=== PATIENT | female | born 1985 | race Caucasian/White ===

== ENCOUNTER 2016-11-02 13:08 | Emergency (ER) | payer MEDICAID ==
[2016-11-02 13:22] VITALS: BP 125/75
--- NOTE | 2016-11-02 14:39 | ED Physician Documentation ---
PD HPI URI - Stated complaint Stated Complaint: COUGH/CONGESTION - Chief complaint Chief Complaint: Heent - History obtained from History obtained from: Patient - History of Present Illness Timing - onset: Other (3 weeks of productive cough, runny nose and sinus congestion but the thing that bothers her the most is bilateral ear pain and diminished hearing. She has had subjective fevers. No possibility of .) Review of Systems Constitutional: reports: Fever, Fatigue Ears: reports: Ear pain. denies: Drainage/discharge Nose: reports: Rhinorrhea / runny nose Throat: denies: Sore throat Respiratory: reports: Cough. 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 : None HEENT: None Psych: Depression, Anxiety, Post traumatic stress disorder Musculoskeletal: None Derm: None - Past Surgical History Past Surgical History: No - Present Medications Home Medications: Ambulatory Orders Medication Instructions Recorded Confirmed Albuterol Sulfate [Proventil Hfa 1 - 2 puffs IH Q4H PRN #1 11/02/16 Inhaler] hfa.aer.ad Amoxicillin 500 mg PO TID #30 capsule 11/02/16 Guaifenesin/Pseudoephedrne HCl 1 each PO BID PRN #20 tab.er.12h 11/02/16 [Mucinex D ER 600-60 mg Tablet] guaiFENesin/CODEINE [Robitussin AC] 5 - 10 ml PO Q6H PRN #120 ml 11/02/16 - Allergies Allergies/Adverse Reactions: Allergies Allergy/AdvReac Type Severity Reaction Status Date / Time oxycodone HCl * Allergy Mild Nausea Verified 11/02/16 13:22 [From Percocet] - Social History Does the pt smoke?: Yes Smoking Status: Current some day smoker Does the pt drink ETOH?: Yes Does the pt have substance abuse?: No - Immunizations Immunizations are current?: Yes - POLST Patient has POLST: No PD ED PE NORMAL - Vitals Vital signs reviewed: Yes - General General: Alert and oriented X 3, No acute distress - HEENT HEENT: PERRL, EOMI, Ears normal (BOM), Moist mucous membranes, Pharynx benign - Neck Neck: Supple, no meningeal sign, No bony TTP - Cardiac Cardiac: RRR, No murmur - Respiratory Respiratory: No respiratory distress, Other (Mild exp wheeze) - Abdomen Abdomen: Non tender - Derm Derm: No rash - Neuro Neuro: Alert and oriented X 3, Normal speech - Psych Psych: Normal mood, Normal affect Results - Vitals Vitals: Vital Signs - 24 hr 11/02/16 13:21 Temperature 35.9 C L Heart Rate 82 Respiratory 14 Rate Blood Pressure 125/75 O2 Saturation 100 Oxygen O2 Source Room air Departure - Departure Disposition: Home, Self Care Clinical Impression: Viral URI with cough BOM (bilateral otitis media) Qualifiers: Otitis media type: suppurative Chronicity: acute Recurrence: recurrent Spontaneous tympanic membrane rupture: without spontaneous rupture Qualified Code(s): H66.006 - Acute suppurative otitis media without spontaneous rupture of ear drum, recurrent, bilateral Condition: Good Record reviewed to determine appropriate education?: Yes Instructions: ED Otitis Media Acute Adult Prescriptions: Amoxicillin 500 mg PO TID #30 capsule Guaifenesin/Pseudoephedrne HCl [Mucinex D ER 600-60 mg Tablet] 1 each PO BID PRN #20 tab.er.12h PRN Reason: congestion Albuterol Sulfate [Proventil Hfa Inhaler] 1 - 2 puffs IH Q4H PRN #1 hfa.aer.ad PRN Reason: Cough guaiFENesin/CODEINE [Robitussin AC] 5 - 10 ml PO Q6H PRN #120 ml PRN Reason: Cough Comments: Follow up with your Dr. in one week, return if worse.
== END 2016-11-02 14:41 | disposition home or self-care (01) ==
LOC: ED 13:08
DX: J06.9 Acute upper respiratory infection, unspecified (principal); B97.89 Other viral agents as the cause of diseases classified elsewhere; H66.006 Acute suppurative otitis media without spontaneous rupture of ear drum, recurrent, bilateral; F17.200 Nicotine dependence, unspecified, uncomplicated
CPT/HCPCS: 99283

== ENCOUNTER 2017-03-19 07:48 | Emergency (ER) | payer OTHER, MEDICAID ==
[2017-03-19] MEDS ORDERED: ACETAMINOPHEN 500 MG TABLET PO STA (08:18)
--- NOTE | 2017-03-19 08:21 | ED Physician Documentation ---
PD HPI BACK PAIN - Stated complaint Stated Complaint: BACK PX - Chief complaint Chief Complaint: Back Pain - History obtained from History obtained from: Patient - History of Present Illness Timing - onset: How many hours ago (4) Timing - details: Still present Location: Lower, Right Quality: Pain Associated symptoms: No: Fever, Weakness, Numbness, Incontinent of urine Worsened by: Movement Contributing factors: Lifting Similar symptoms before: Has not had sx before - Additional information Additional information: The patient is a 32-year-old female who presents with right lower back pain that started suddenly this morning when 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 The pain has persisted since onset. She denies associated fever, numbness or weakness, or urinary incontinence. She has no history of similar symptoms in the past. She is currently at about 14 weeks gestation. Review of Systems Constitutional: denies: Fever Nose: denies: Congestion Throat: denies: Sore throat Cardiac: denies: Chest pain / pressure Respiratory: denies: Dyspnea, Cough GI: denies: Abdominal Pain, Nausea, Vomiting : denies: Dysuria, Incontinent Skin: denies: Rash Musculoskeletal: reports: Back pain. 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 HEENT: None Psych: Depression, Anxiety, Post traumatic stress disorder Musculoskeletal: None Derm: None - Past Surgical History Past Surgical History: No - Present Medications Home Medications: Ambulatory Orders Medication Instructions Recorded Confirmed Cyclobenzaprine [Flexeril] 10 mg PO TID PRN #20 tablet 03/19/17 - Allergies Allergies/Adverse Reactions: Allergies Allergy/AdvReac Type Severity Reaction Status Date / Time oxycodone HCl * Allergy Mild Nausea Verified 03/19/17 07:59 [From Percocet] - Social History Does the pt smoke?: Yes Smoking Status: Current every day smoker Does the pt drink ETOH?: No Does the pt have substance abuse?: Yes Substance Use and Type: Meth - Immunizations Immunizations are current?: Yes - POLST Patient has POLST: No PD ED PE NORMAL - Vitals Vital signs reviewed: Yes (borderline hypertension) - General General: Alert and oriented X 3, Well developed/nourished - HEENT HEENT: Atraumatic, Pharynx benign - Neck Neck: Supple, no meningeal sign, No adenopathy - Cardiac Cardiac: RRR, No murmur - Respiratory Respiratory: No respiratory distress, Clear bilaterally - Abdomen Abdomen: Soft, Non tender, Other ( heart rate 145.) - Back Back: Other (Mild right flank tenderness to percussion; tender to palpation in the right paralumbar musculature.) - Derm Derm: No rash - Extremities Extremities: No edema, No calf tenderness / cord, Other (Straight leg raise test is negative bilaterally.) - Neuro Neuro: Alert and oriented X 3, No motor deficit, No sensory deficit, Other (No saddle anesthesia.) Results - Vitals Vitals: Oxygen O2 Source Room air - Labs Labs: Laboratory Tests 03/19/17 07:58 Urine Color YELLOW Urine Clarity CLEAR Urine pH 6.0 Ur Specific [place] 1.010 Urine Protein NEGATIVE Urine Glucose (UA) NEGATIVE Urine Ketones NEGATIVE Urine Occult Blood NEGATIVE Urine Nitrite NEGATIVE Urine Bilirubin NEGATIVE Urine Urobilinogen 0.2 (NORMAL) Ur Leukocyte Esterase NEGATIVE Ur Microscopic Review NOT INDICATED Urine Culture Comments NOT INDICATED PD MEDICAL DECISION MAKING - ED course Complexity details: reviewed results, re-evaluated patient, considered differential, d/w patient ED course: The patient's presentation is most consistent with acute lumbar strain. Her presentation does not suggest urinary tract infection, with negative urinalysis. There is no evidence to suggest epidural abscess, spinal stenosis, for cauda equina syndrome. Treatment in the emergency department included administration of acetaminophen 1000 mg orally. I discussed with her the expected course of symptoms, symptomatic relief and outpatient follow-up, as well as potentially worrisome signs or symptoms that should prompt reevaluation in the emergency department. A labor and industries form was completed. Departure - Departure Disposition: 01 Home, Self Care Clinical Impression: Back pain Qualifiers: Back pain location: low back pain Chronicity: acute Back pain laterality: right Sciatica presence: without sciatica Qualified Code(s): M54.5 - Low back pain Condition: Stable Instructions: ED Low Back Pain Injury Follow-Up: Laura Jaramillo ARNP [Primary Care Provider] - Prescriptions: Cyclobenzaprine [Flexeril] 10 mg PO TID PRN #20 tablet PRN Reason: Spasms Comments: Apply icepack to your lower back intermittently for the next 3 or 4 days. You can use acetaminophen as needed for back pain. Use Flexeril as prescribed if needed for muscle spasms. Let pain be your guide to activity level. Followup with your primary physician within 2 weeks. Call to schedule an appointment. Return to the emergency department if you develop increasing pain, numbness or weakness, urinary incontinence, or otherwise worsening symptoms. Discharge Date/Time: 03/19/17 09:49
[2017-03-19] MEDS ORDERED: ACETAMINOPHEN 500 MG TABLET PO ONE (08:29)
[2017-03-19 08:59] LABS: BILIRUBIN,URINE NEGATIVE (NEGATIVE)
[2017-03-19 09:01] LABS: UA CHARGE (STRIP ONLY) YES; UR CULTURE IF IND NOT INDICATED
[2017-03-19 09:49] VITALS: BP 136/74
[2017-03-19] MEDS ORDERED: ACETAMINOPHEN 1,000 MG/100 ML 100 ML IV ONE (11:28)
== END 2017-03-19 09:49 | disposition home or self-care (01) ==
LOC: ED 07:48
DX: M54.5 Low back pain (principal); X50.0XXA Overexertion from strenuous movement or load, initial encounter; Y93.89 Activity, other specified; Y99.0 Civilian activity done for income or pay; F17.200 Nicotine dependence, unspecified, uncomplicated
CPT/HCPCS: 1040M; 81003; 99283; A9270; J0131; 81001; 87086

== ENCOUNTER 2017-05-14 12:06 | Outpatient (CLI) | payer MEDICAID ==
--- NOTE | 2017-05-17 17:44 | Ultrasound Report ---
EXAM: OB ANATOMIC SURVEY 05/14/2017 CLINICAL INDICATION: . TECHNIQUE: Real-time scanning was performed with customer field representative static images obtained. LAST MENSTRUAL PERIOD: 11/23/2016 Clinical Age: 24 weeks 4 days US Age: 25 weeks 0 days EFW Hadlock: 739 gm EFW% Hadlock: 52% Heart Rate: 146 bpm EDC: 08/30/2017 US EDC: 08/27/2017 BPD Hadlock: 25 weeks 2 days; Mean mm 63 HC Hadlock: 25 weeks 1 day; Mean mm 231 AC Hadlock: 24 weeks 6 days; Mean mm 203 FL Hadlock: 24 weeks 4 days; Mean mm 44 Presentation: cephalic Placental Location: posterior Cervical Length: 4.1 cm Amniotic Fluid: 15.6 cm FINDINGS There is a single viable intrauterine gestation, in cephalic presentation. heart rate is 146 BPM. The placenta is posterior, without evidence of previa. The amniotic fluid volume is subjectively normal. By size, the fetus measures 25 weeks 0 days (24 weeks 4 days by LMP). The following anatomic structures were visualized and appear normal: The intracranial contents, including the ventricles and posterior fossa, the lips and orbits, the spine, the heart, including four chamber view and outflow tracts, and diaphragm, the abdominal contents, including the stomach, the bilateral kidneys, and the urinary bladder, as well as a normal three-vessel cord insertion, four limbs. No free fluid or adnexal lesion is appreciated. IMPRESSION: Single viable intrauterine gestation, with size in keeping with LMP dating. Normal anatomic survey. TD: 05/14/2017 17:47 [facility]
== END 2017-05-14 12:07 | disposition home or self-care (01) ==
LOC: DI 12:06
PROVIDERS: ATTEND Midwife
DX: Z36.9 Encounter for antenatal screening, unspecified (principal)
CPT/HCPCS: 76811

== ENCOUNTER 2017-07-21 07:56 | Outpatient (CLI) | payer MEDICAID | END 2017-07-21 07:57 | disposition home or self-care (01) | LOC: LAB 07:56 | PROVIDERS: ATTEND Midwife | DX: O99.814 Abnormal glucose complicating childbirth (principal) | CPT/HCPCS: 36415; 82951 ==

== ENCOUNTER 2018-03-18 11:00 | Outpatient (CLI) | payer MEDICAID ==
[2018-03-18 17:20] LABS: MUDS CUTOFF CONCENTRATIONS CUTOFF CONC BELOW:
[2018-03-18 17:48] LABS: AMPHETAMINE SCREEN,URINE NEGATIVE (NEGATIVE); BENZODIAZEPINES SCREEN, URINE NEGATIVE (NEGATIVE); COCAINE SCREEN URINE NEGATIVE (NEGATIVE); METHADONE SCREEN, URINE NEGATIVE (NEGATIVE); METHAMPHETAMINES SCREEN, URINE NEGATIVE (NEGATIVE); OPIATE SCREEN, URINE NEGATIVE (NEGATIVE); OXYCODONE SCREEN, URINE NEGATIVE (NEGATIVE); PROPOXYPHENE SCREEN, URINE NEGATIVE (NEGATIVE); TRICYCLIC ANTIDEPRESSANT,URINE NEGATIVE (NEGATIVE)
== END 2018-03-18 11:01 | disposition home or self-care (01) ==
LOC: LAB.R 11:00
PROVIDERS: ATTEND Nurse Practitioner Family
DX: F19.11 Other psychoactive substance abuse, in remission (principal)
CPT/HCPCS: 80306

== ENCOUNTER 2018-06-10 16:40 | Outpatient (CLI) | payer MEDICAID | END 2018-06-10 16:41 | disposition EMS.NT | LOC: EMS 16:40 | PROVIDERS: ATTEND Surgery ==